=== PATIENT | male | born 1975 | race Caucasian/White ===

== ENCOUNTER 2016-11-24 14:15 | Emergency (ER) | payer SELFPAY ==
[2016-11-24 14:36] VITALS: BP 151/85
[2016-11-24] MEDS ORDERED: Bacitracin Oint 1 GM U/D Packet TOP ONE (15:22)
--- NOTE | 2016-11-24 15:22 | EDM.PDOC ---
ED HPI GENERAL MEDICAL PROBLEM - General Chief Complaint: Laceration Stated Complaint: CUT RT LEG Time Seen by Provider: 11/24/16 15:16 Source of Information: Reports: Patient History Limitations: Reports: No Limitations - History of Present Illness INITIAL COMMENTS - FREE TEXT/NARRATIVE: pt cut his anterior thigh on a piece of metal. He just hd a tetanus. He does not want lidocaine. Onset: Today Duration: Hour(s): Associated Symptoms: Reports: No Other Symptoms, Other - Related Data Allergies Allergy/AdvReac Type Severity Reaction Status Date / Time No Known Allergies Allergy Verified 11/24/16 14:31 Home Meds: Home Meds NK [No Known Home Meds] 11/24/16 [History] Past Medical History Musculoskeletal History: Reports: Fracture - Infectious Disease History Infectious Disease History: Reports: Chicken Pox - Past Surgical History GI Surgical History: Reports: Appendectomy, Cholecystectomy, Small Bowel Social & Family History - Tobacco Use Smoking Status *Q: Light Tobacco Smoker Years of Tobacco use: 0 Packs/Tins Daily: 0 - Recreational Drug Use Recreational Drug Use: No ED ROS GENERAL - Review of Systems Review Of Systems: See Below Constitutional: Reports: No Symptoms HEENT: Reports: No Symptoms Respiratory: Reports: No Symptoms Cardiovascular: Reports: No Symptoms Endocrine: Reports: No Symptoms GI/Abdominal: Reports: No Symptoms : Reports: No Symptoms Skin: Reports: Other ( laceration of the rt anterior thigh. ) ED EXAM, SKIN/RASH Exam: See Below Text/Narrative:: pt has a 2.5 inch laceration on the anterior thigh. He cut this on a piece of meta. Exam Limited By: No Limitations General Appearance: Alert, Anxious Extremities: Other ( 2.5 inch lac on the left ant thigh. This is deep to the subq. ) Course - Vital Signs Last Recorded V/S: Last Vital Signs Temp 36.6 C 11/24/16 14:35 Pulse 54 L 11/24/16 14:35 Resp 16 11/24/16 14:35 BP 151/85 H 11/24/16 14:35 Pulse Ox 99 11/24/16 14:35 - Orders/Labs/Meds Orders: Active Orders 24 hr Category Date Time Status Bacitracin [Bacitracin Oint 1 GM] Med 11/24/16 15:22 Once 1 dose TOP ONETIME ONE - Re-Assessments/Exams Free Text/Narrative Re-Assessment/Exam: 11/24/16 15:20 Pt did not want lidocaine. The area was scrubbed well and the subq was closed with 5-0 chromic. The skin was closed with 5-0 proplene. It was dressed with bacatracin. e Departure - Departure Time of Disposition: 15:22 Disposition: Home, Self-Care 01 Condition: Fair Clinical Impression: Laceration - Discharge Information Forms: ED Department Discharge Care Plan Goals: keep dry, no further ointments, sr in 7-8 days. - My Orders Last 24 Hours: My Active Orders 11/24/16 15:22 Bacitracin [Bacitracin Oint 1 GM] 1 dose TOP ONETIME ONE - Assessment/Plan Last 24 Hours: My Active Orders 11/24/16 15:22 Bacitracin [Bacitracin Oint 1 GM] 1 dose TOP ONETIME ONE
== END 2016-11-24 16:43 | disposition home or self-care (01) ==
LOC: JP.ED 14:15
DX: S71.111A Laceration without foreign body, right thigh, initial encounter (principal); F17.210 Nicotine dependence, cigarettes, uncomplicated; Z90.49 Acquired absence of other specified parts of digestive tract; Z98.890 Other specified postprocedural states; W26.8XXA Contact with other sharp object(s), not elsewhere classified, initial encounter
CPT/HCPCS: 12001; 12032; 99282-25; 99283-25